=== PATIENT | female | born 1970 | race Hispanic/Latino ===

== ENCOUNTER 2017-12-03 02:22 | Emergency (ER) | payer BC, OTHER ==
[2017-12-03 02:53] LABS: APPEARANCE,URINE Clear (CLEAR); BILIRUBIN,URINE Negative (NEGATIVE); COLOR,URINE Yellow (YELLOW); GLUCOSE, URINE (UA) Negative (NEGATIVE); KETONES,URINE Negative (NEGATIVE); LEUKOCYTE ESTERASE ,URINE Small (NEGATIVE); NITRATE,URINE Negative (NEGATIVE); OCCULT BLOOD,URINE Large (NEGATIVE); PROTEIN,URINE Negative (NEGATIVE); UROBILINOGEN,URINE 0.2 mg/dL (0.2-1.0)
[2017-12-03 03:05] LABS: BACTERIA,URINE Few /HPF (None Seen); MUCUS,URINE Moderate LPF (None Seen); SQUAMOUS EPITHELIAL CELL,UR Few /LPF (0-2); YEAST,URINE BUDDING Few /HPF (None Seen)
[2017-12-03 03:24] LABS: BASOPHILS % (AUTO) 0.7 % (0.0-5.0); EOSINOPHILS % (AUTO) 0.5 % (0.0-8.0); HEMATOCRIT 38.2 % (36-48); LYMPHOCYTES % (AUTO) 15.7 % (21.0-51.0); MEAN CORPUSCULAR HEMOGLOBIN 31.4 pg (27.0-33.0); MEAN CORPUSCULAR HGB CONC 34.2 g/dL (32.0-36.0); MONOCYTES % (AUTO) 5.6 % (3.0-13.0); NEUTROPHILS % (AUTO) 77.5 % (40.0-77.0); PLATELET COUNT (AUTO) 270 K/uL (130-400); RED BLOOD CELL COUNT(AUTO) 4.15 MIL/uL (4.00-5.50); RED CELL DISTRIBUTION WIDTH 13.3 % (11.0-15.5); WHITE BLOOD COUNT (AUTO) 16.8 K/uL (4.8-10.8)
[2017-12-03 03:38] LABS: CREATININE 0.7 mg/dL (0.5-1.5); POTASSIUM 4.1 mmol/L (3.5-5.1)
[2017-12-03 03:42] LABS: ALBUMIN 3.9 g/dL (3.5-5.0); BILIRUBIN,TOTAL 0.3 mg/dL (0.2-1.0)
[2017-12-03] MEDS ORDERED: KETOROLAC TROMETHAMINE 30MG/ML ONE (04:50)
[2017-12-03] MEDS ORDERED: SODIUM CHLORIDE 0.9% 500ML 0 ML IV ONE (04:50)
[2017-12-03] MEDS ORDERED: SODIUM CHLORIDE 0.9% 1000ML 1,000 ML IV ONE (04:51)
[2017-12-03] MEDS ORDERED: ONDANSETRON HCL 4 MG/2 ML VIAL ONE (04:51)
[2017-12-03] MEDS ORDERED: MORPHINE SULFATE 4 MG/1ML SYG ONE (08:27)
== END 2017-12-03 09:51 | disposition home or self-care (01) ==
LOC: EDH 02:22
DX: R10.31 Right lower quadrant pain (principal); Z98.890 Other specified postprocedural states
CPT/HCPCS: 36415; 74176; 76856; 80053; 81001; 85025; 96361; 96374; 96375; 99285; J1885; J2270; J2405; J7030; J7040

== ENCOUNTER 2022-12-01 01:00 | Emergency (ER) | payer BC, OTHER ==
[~2022-12-01] VITALS: Ht 167.6 cm; Wt 86.6 kg
[2022-12-01] MEDS ORDERED: ONDANSETRON 4MG INJ ONE (01:21)
[2022-12-01] MEDS ORDERED: 0.9%NACL 1000ML 1,000 ML IV ONE (01:21)
[2022-12-01] MEDS ORDERED: KETOROLAC 30MG VIAL (30MG/ML) ONE (01:21)
[2022-12-01 01:41] LABS: BASOPHILS % (AUTO) 0.5 % (0.0-5.0); EOSINOPHILS % (AUTO) 2.3 % (0.0-8.0); HEMATOCRIT 40.9 % (36-48); LYMPHOCYTES % (AUTO) 42.1 % (21.0-51.0); MEAN CORPUSCULAR HEMOGLOBIN 30.6 pg (27.0-33.0); MEAN CORPUSCULAR VOLUME 90.1 fL (79-99); MONOCYTES % (AUTO) 7.2 % (3.0-13.0); NEUTROPHILS % (AUTO) 47.7 % (40.0-77.0); PLATELET COUNT (AUTO) 313 K/uL (130-400); RED BLOOD CELL COUNT(AUTO) 4.54 MIL/uL (4.00-5.50); RED CELL DISTRIBUTION WIDTH 11.8 % (11.0-15.5); WHITE BLOOD COUNT (AUTO) 11.6 K/uL (4.8-10.8)
[2022-12-01 01:43] LABS: APPEARANCE,URINE CLEAR (CLEAR); BILIRUBIN,URINE NEGATIVE (NEGATIVE); COLOR,URINE LIGHT-YELLOW (YELLOW); GLUCOSE, URINE (UA) NEGATIVE (NEGATIVE); KETONES,URINE NEGATIVE (NEGATIVE); LEUKOCYTE ESTERASE ,URINE 25 Leu/uL (NEGATIVE); NITRATE,URINE NEGATIVE (NEGATIVE); OCCULT BLOOD,URINE NEGATIVE (NEGATIVE); PROTEIN,URINE NEGATIVE (NEGATIVE); UROBILINOGEN,URINE 0.2 mg/dL (0.2-1.0)
[2022-12-01 01:51] LABS: BACTERIA,URINE RARE /HPF (None Seen); MUCUS,URINE RARE LPF (None Seen); RBC,URINE 0-1 /HPF (0-1); SQUAMOUS EPITHELIAL CELL,UR RARE /HPF (0-2)
[2022-12-01 01:58] LABS: ALBUMIN 4.1 g/dL (3.5-5.0); TOTAL PROTEIN, SERUM 7.8 g/dL (6.0-8.3)
[2022-12-01] MEDS ORDERED: MORPHINE 4 MG SYG ONE (02:03)
[2022-12-01] MEDS ORDERED: MORPHINE 5 MG/ML VIAL (5MG OR GREATER DOSE) ONE (03:03)
[2022-12-01 07:25] VITALS: BP 133/82
[2022-12-01] MEDS ORDERED: ACET-2079 PO (07:47)
[2022-12-01] MEDS ORDERED: DICL25TA9 PO (07:47)
[2022-12-01] MEDS ORDERED: CEPH500B PO (07:51)
[2022-12-01] MEDS ORDERED: CEFTRIAXONE 1G VIAL IVPB ONE (08:00)
== END 2022-12-01 08:04 | disposition home or self-care (01) ==
LOC: EDH 01:00
DX: N13.2 Hydronephrosis with renal and ureteral calculous obstruction (principal); Z87.442 Personal history of urinary calculi; Z90.710 Acquired absence of both cervix and uterus
CPT/HCPCS: 99284; 74176; 96374; 96375; 96361; 80053; 83690; 85025; 81001; 36415; J2270 ×2; J7030; J0696; J2405; J1885

== ENCOUNTER 2023-03-31 18:52 | Emergency (ER) | payer BC ==
[~2023-03-31] VITALS: Ht 165.1 cm; Wt 81.6 kg
[~2023-03-31 18:52] MED LIST: ACET-2079 PO; CEPH500B PO; DICL25TA9 PO
[2023-03-31 20:04] LABS: BASOPHILS % (AUTO) 0.7 % (0.0-5.0); EOSINOPHILS % (AUTO) 5.5 % (0.0-8.0); HEMATOCRIT 40.5 % (36-48); LYMPHOCYTES % (AUTO) 35.6 % (21.0-51.0); MEAN CORPUSCULAR HEMOGLOBIN 30.5 pg (27.0-33.0); MEAN CORPUSCULAR HGB CONC 33.3 g/dL (32.0-36.0); MEAN CORPUSCULAR VOLUME 91.6 fL (79-99); MONOCYTES % (AUTO) 7.1 % (3.0-13.0); NEUTROPHILS % (AUTO) 50.9 % (40.0-77.0); PLATELET COUNT (AUTO) 265 K/uL (130-400); RED BLOOD CELL COUNT(AUTO) 4.42 MIL/uL (4.00-5.50); RED CELL DISTRIBUTION WIDTH 12.1 % (11.0-15.5); WHITE BLOOD COUNT (AUTO) 8.8 K/uL (4.8-10.8)
[2023-03-31 20:11] LABS: APPEARANCE,URINE CLEAR (CLEAR); BILIRUBIN,URINE NEGATIVE (NEGATIVE); COLOR,URINE COLORLESS (YELLOW); GLUCOSE, URINE (UA) NEGATIVE (NEGATIVE); KETONES,URINE NEGATIVE (NEGATIVE); LEUKOCYTE ESTERASE ,URINE 75 Leu/uL (NEGATIVE); NITRATE,URINE NEGATIVE (NEGATIVE); OCCULT BLOOD,URINE NEGATIVE (NEGATIVE); PROTEIN,URINE NEGATIVE (NEGATIVE); UROBILINOGEN,URINE 0.2 mg/dL (0.2-1.0)
[2023-03-31 20:15] LABS: BACTERIA,URINE RARE /HPF (None Seen); RBC,URINE 0-1 /HPF (0-1); SQUAMOUS EPITHELIAL CELL,UR RARE /HPF (0-2)
[2023-03-31 20:18] LABS: POTASSIUM 3.7 mmol/L (3.5-5.1)
[2023-03-31 20:23] LABS: ALBUMIN 4.2 g/dL (3.5-5.0); TOTAL PROTEIN, SERUM 7.3 g/dL (6.0-8.3)
[2023-03-31] MEDS ORDERED: IBUP-1493 PO (20:48)
[2023-03-31] MEDS ORDERED: CEFU500T67 PO (20:48)
[2023-03-31 22:05] VITALS: BP 135/60
== END 2023-03-31 22:20 | disposition home or self-care (01) ==
LOC: EDH 18:52
DX: N39.0 Urinary tract infection, site not specified (principal); R29.91 Unspecified symptoms and signs involving the musculoskeletal system; F17.210 Nicotine dependence, cigarettes, uncomplicated; Z79.1 Long term (current) use of non-steroidal anti-inflammatories (NSAID)
CPT/HCPCS: 36415; 71045; 80053; 81001; 84484; 85025; 85378; 87088; 93005

== ENCOUNTER 2024-05-10 00:44 | Emergency (ER) | payer BC ==
[~2024-05-10] VITALS: Ht 165.1 cm; Wt 56.7 kg
[~2024-05-10 00:44] MED LIST changes: +CEFU500T67 PO; +IBUP-1493 PO
[2024-05-10 01:06] LABS: BASOPHILS # (AUTO) 0.03 K/uL (0.00-0.20); BASOPHILS % (AUTO) 0.3 % (0.0-5.0); EOSINOPHILS # (AUTO) 0.37 K/uL (0.00-0.70); EOSINOPHILS % (AUTO) 3.7 % (0.0-8.0); HEMATOCRIT 42.2 % (36-48); IMMATURE GRANULOCYTE ABSOLUTE 0.01 K/uL (0-1); LYMPHOCYTES # (AUTO) 4.2 K/uL (1.0-4.8); LYMPHOCYTES % (AUTO) 41.4 % (21.0-51.0); MEAN CORPUSCULAR HEMOGLOBIN 30.6 pg (27.0-33.0); MEAN CORPUSCULAR HGB CONC 33.9 g/dL (32.0-36.0); MEAN CORPUSCULAR VOLUME 90.2 fL (79-99); MONOCYTES # (AUTO) 0.6 K/uL (0.1-1.0); MONOCYTES % (AUTO) 6.1 % (3.0-13.0); NEUTROPHILS # (AUTO) 4.9 K/uL (1.8-7.7); NEUTROPHILS % (AUTO) 48.4 % (40.0-77.0); PLATELET COUNT (AUTO) 155 K/uL (130-400); RED BLOOD CELL COUNT(AUTO) 4.68 MIL/uL (4.00-5.50)
[2024-05-10 01:24] LABS: CREATININE 0.8 mg/dL (0.5-1.0); POTASSIUM 4.5 mmol/L (3.5-5.1)
[2024-05-10 01:29] LABS: ALBUMIN 4.4 g/dL (3.5-5.0); B-TYPE NATRIURETIC PEPTIDE 19 pg/mL (0-100); BILIRUBIN,TOTAL 0.4 mg/dL (0.2-1.0); TOTAL PROTEIN, SERUM 7.9 g/dL (6.0-8.3)
[2024-05-10] MEDS: ASPIRIN 325MG TAB PO ONE (01:53)
[2024-05-10] MEDS: PANTOPRAZOLE 40 MG/VIAL IVP ONE (01:54)
[2024-05-10] MEDS: NITROGLYCERIN 1GM OINT 1 INCH/1GM TD ONE (01:54)
[2024-05-10 02:14] LABS: APPEARANCE,URINE CLEAR (CLEAR); BILIRUBIN,URINE NEGATIVE (NEGATIVE); COLOR,URINE COLORLESS (YELLOW); GLUCOSE, URINE (UA) NEGATIVE (NEGATIVE); KETONES,URINE NEGATIVE (NEGATIVE); LEUKOCYTE ESTERASE ,URINE 75 Leu/uL (NEGATIVE); NITRATE,URINE NEGATIVE (NEGATIVE); OCCULT BLOOD,URINE NEGATIVE (NEGATIVE); PH,URINE 6.5 (5.0-8.0); PROTEIN,URINE NEGATIVE (NEGATIVE); UROBILINOGEN,URINE 0.2 mg/dL (0.2-1.0)
[2024-05-10 02:15] LABS: ADD UA MICROSCOPIC YES
[2024-05-10 02:16] LABS: RBC,URINE 0-1 /HPF (0-1); SQUAMOUS EPITHELIAL CELL,UR RARE /HPF (0-2); WBC,URINE 0-1 /HPF (0-1)
[2024-05-10 02:17] LABS: BACTERIA,URINE Rare /HPF (None Seen)
[2024-05-10] MEDS ORDERED: PANT20TA18 PO (02:57)
[2024-05-10] MEDS ORDERED: NITR100C4 PO (02:57)
[2024-05-10] MEDS: KETOROLAC 15MG/ML VIAL (15MG/ML) IV ONE (02:58)
[2024-05-10 04:09] VITALS: BP 109/55; PULSE 78; RESP 16; O2SAT 98
== END 2024-05-10 04:17 | disposition home or self-care (01) ==
LOC: EDH 00:44
DX: K29.70 Gastritis, unspecified, without bleeding (principal); N39.0 Urinary tract infection, site not specified; R07.89 Other chest pain; Z79.899 Other long term (current) drug therapy; Z90.710 Acquired absence of both cervix and uterus; Z98.890 Other specified postprocedural states
CPT/HCPCS: 99284; 82550; 84484 ×3; 80053; 83880; 83690; 85025; 87086; 81001; 36415; 71045; 96374; 96375; 93005; J2470; J1885

== ENCOUNTER 2024-06-24 16:06 | Emergency (ER) | payer BC ==
[~2024-06-24] VITALS: Ht 162.6 cm; Wt 63.0 kg
[~2024-06-24 16:06] MED LIST changes: +NITR100C4 PO; +PANT20TA18 PO
[2024-06-24 16:43] LABS: BASOPHILS # (AUTO) 0.07 K/uL (0.00-0.20); BASOPHILS % (AUTO) 0.8 % (0.0-5.0); EOSINOPHILS % (AUTO) 4.7 % (0.0-8.0); HEMATOCRIT 42.1 % (36-48); IMMATURE GRANULOCYTE ABSOLUTE 0.01 K/uL (0-1); LYMPHOCYTES # (AUTO) 3.4 K/uL (1.0-4.8); MEAN CORPUSCULAR HEMOGLOBIN 30.9 pg (27.0-33.0); MEAN CORPUSCULAR HGB CONC 33.7 g/dL (32.0-36.0); MEAN CORPUSCULAR VOLUME 91.5 fL (79-99); MONOCYTES # (AUTO) 0.6 K/uL (0.1-1.0); MONOCYTES % (AUTO) 7.3 % (3.0-13.0); NEUTROPHILS # (AUTO) 4.1 K/uL (1.8-7.7); NEUTROPHILS % (AUTO) 47.1 % (40.0-77.0); PLATELET COUNT (AUTO) 281 K/uL (130-400); RED CELL DISTRIBUTION WIDTH 11.9 % (11.0-15.5); WHITE BLOOD COUNT (AUTO) 8.6 K/uL (4.8-10.8)
[2024-06-24 16:46] LABS: APPEARANCE,URINE CLEAR (CLEAR); BILIRUBIN,URINE NEGATIVE (NEGATIVE); COLOR,URINE LIGHT-YELLOW (YELLOW); GLUCOSE, URINE (UA) NEGATIVE (NEGATIVE); KETONES,URINE NEGATIVE (NEGATIVE); LEUKOCYTE ESTERASE ,URINE 250 Leu/uL (NEGATIVE); NITRATE,URINE NEGATIVE (NEGATIVE); OCCULT BLOOD,URINE NEGATIVE (NEGATIVE); PH,URINE 5.5 (5.0-8.0); PROTEIN,URINE NEGATIVE (NEGATIVE); UROBILINOGEN,URINE 0.2 mg/dL (0.2-1.0)
[2024-06-24 16:57] LABS: ADD UA MICROSCOPIC YES
[2024-06-24 17:01] LABS: MUCUS,URINE RARE LPF (None Seen); SQUAMOUS EPITHELIAL CELL,UR FEW /HPF (0-2)
[2024-06-24 17:04] LABS: CREATININE 0.8 mg/dL (0.5-1.0)
[2024-06-24] MEDS: cefTRIAXone 1G VIAL IVPB ONE (17:39)
[2024-06-24] MEDS ORDERED: ACET-66 PO (18:16)
[2024-06-24] MEDS ORDERED: CEPH500B PO (18:16)
[2024-06-24 18:39] VITALS: BP 146/88; PULSE 61; RESP 14; TEMP 98.6; O2SAT 99
== END 2024-06-24 18:42 | disposition home or self-care (01) ==
LOC: EDH 16:06
DX: N39.0 Urinary tract infection, site not specified (principal); K21.9 Gastro-esophageal reflux disease without esophagitis; Z79.1 Long term (current) use of non-steroidal anti-inflammatories (NSAID); Z79.899 Other long term (current) drug therapy; Z90.710 Acquired absence of both cervix and uterus
CPT/HCPCS: 99284; 74176; 96365; 80048; 85025; 87086; 81001; 36415; J0696

== ENCOUNTER 2025-09-01 11:06 | Emergency (ER) | payer BC ==
[~2025-09-01] VITALS: Ht 165.1 cm; Wt 89.8 kg
[~2025-09-01 11:06] MED LIST changes: +ACET-66 PO
[2025-09-01 11:32] LABS: APPEARANCE,URINE CLEAR (CLEAR); GLUCOSE, URINE (UA) NEGATIVE (NEGATIVE); LEUKOCYTE ESTERASE ,URINE 75 Leu/uL (NEGATIVE); NITRATE,URINE NEGATIVE (NEGATIVE); OCCULT BLOOD,URINE NEGATIVE (NEGATIVE)
[2025-09-01 11:40] LABS: ADD UA MICROSCOPIC YES
[2025-09-01 11:40] LABS: IMMATURE GRANULOCYTE ABSOLUTE 0.03 K/uL (0-1); NUCLEATED RED BLOOD CELLS 0.0 % (0.0-0.19); PLATELET COUNT (AUTO) 263 K/uL (130-400); RED BLOOD CELL COUNT(AUTO) 4.42 MIL/uL (4.00-5.50); RED CELL DISTRIBUTION WIDTH 12.1 % (11.0-15.5); WHITE BLOOD COUNT (AUTO) 8.8 K/uL (4.8-10.8)
[2025-09-01 11:46] LABS: CREATININE 0.9 mg/dL (0.5-1.0); GLOMERULAR FILTR. RATE CALC 75.0 mL/min (>90); GLUCOSE,RANDOM 127.0 mg/dL (70-105); SODIUM SERUM 141.0 mmol/L (136-145); UREA NITROGEN, BLOOD 18.0 mg/dL (7-18)
[2025-09-01 11:46] LABS: SQUAMOUS EPITHELIAL CELL,UR RARE /HPF (0-2)
[2025-09-01] MEDS: LIDOCAINE 4% ADH..PATCH TP ONE (11:53)
[2025-09-01] MEDS: 0.9%NACL 1000ML 1,000 ML IV STA (11:53)
[2025-09-01] MEDS ORDERED: METH100054 PO (13:00)
[2025-09-01] MEDS ORDERED: LIDO1ADH82 TP (13:00)
[2025-09-01] MEDS ORDERED: KETO10TA2 PO (13:00)
--- NOTE | 2025-09-01 13:01 | ERN ---
ED Note History of Present Illness Stated Complaint: BACK PAIN Chief Complaint: Back Pain-No Injury Time Seen by MD: 11:09 Time Seen by Midlevel: 11:11 Dictation: 55-year-old female coming in with complaints of left lower back pain radiating to her left leg, this is has been going on since last Sunday. Patient is also complaining of dysuria. Any fever, nausea vomiting or diarrhea. Denies any medical history. Allergies: Coded Allergies: No Known Allergies (Unverified Allergy, Unknown, 12/01/22) Home Meds Active Scripts Acetaminophen (Tylenol) 500 Mg Tab, 500 MG PO Q6HPRN, #30 TAB Prov:GAVINO VALENTE MD 06/24/24 Cephalexin Monohydrate (Keflex) 500 Mg Cap, 500 MG PO Q6HPRN, #28 CAP Prov:GAVINO VALENTE MD 06/24/24 Pantoprazole Sodium (Pantoprazole Sodium) 20 Mg Tablet.dr, 20 MG PO DAILY for 30 Days, #30 TAB Prov:LAINE WEINSTEIN MD 05/10/24 Nitrofurantoin Monohyd/M-Cryst (Macrobid 100 mg Capsule) 100 Mg Capsule, 100 MG PO BID for 5 Days, #10 CAP Prov:LAINE WEINSTEIN MD 05/10/24 Cefuroxime Axetil (Cefuroxime) 500 Mg Tablet, 500 MG PO BID, #20 TAB Prov:NEGRA HARRIS MD 03/31/23 Ibuprofen (Motrin/Advil) 800 Mg Tab, 800 MG PO TID, #30 TAB Prov:NEGRA HARRIS MD 03/31/23 Cephalexin Monohydrate (Keflex) 500 Mg Cap, 500 MG PO QID for 5 Days, #20 CAP Prov:AROLDO MENCHACA MD 12/01/22 Acetaminophen with Codeine (Acetaminophen-Cod #3 Tablet) 1 Each Tablet, 1 EACH PO QIDP for 3 Days, #12 TAB Prov:AROLDO MENCHACA MD 12/01/22 Diclofenac Sodium (Diclofenac Sodium) 25 Mg Tablet.dr, 25 MG PO QID for 10 Days, #40 TAB Prov:AROLDO MENCHACA MD 12/01/22 Past Medical History Past Medical History: GERD, Kidney Stone Surgical History: Hysterectomy Surgical History Other: ECTOPIC Family History: Negative Social History: ETOH, Lives with family History: Not Applicable Review of System Dictation Constitutional: Negative for fever,chills, and weight loss Eyes: Negative for injury, pain,redness, and discharge ENT: Negative for injury,pain or swelling Cardiovascular: Negative for chest pain, palpitations, and edema Respiratory: Negative for shortness of breath, cough, and wheezing, Abdomen/GI: Negative for abdominal pain, nausea, vomiting, diarrhea, and constipation Back: Negative for injury and pain : Negative for injury, bleeding and discharge MS/Extremity: Negative for injury and deformity left lower back pain radiating to the left leg Skin: Negative for rash, and discoloration Neuro: Negative for headache, weakness, numbness, tingling, and seizure Psych: Negative for suicide ideation, homicidal ideation, and hallucinations Review of Systems: was completed Initial Vital Sign VS Vital Signs Date Time Temp Pulse Resp B/P (MAP) Pulse Ox O2 Delivery O2 Flow Rate FiO2 09/01/25 11:07 97.9 71 18 159/89 99 Room Air 0 Physical Exam Dictation General: awake, alert, NAD Head/Face: Normocephalic, atraumatic Eyes: PERRL, EOMI, vision at baseline ENT: oral cavity clear, TMs clear, no signs of infection Neck: Trachea midline, supple, no nuchal rigidity Cardiovascular: RRR, normal S1/S2, No MRGs, no JVD Respiratory: CTAB, no respiratory distress, No rales or wheezes Abdomen: Soft, non-tender, non-distended, normal bowel sounds, no guarding or rebound., no CVA tenderness Skin: Warm, dry, normal turgor, no rash MS/Extremity: Pulses equal, no cyanosis, neurovascular intact, FROM Neuro: COAx4, GCS 15, strength 5/5, CN 2-12 intact, normal cerebellar exam, normal gait, Psych: Normal behavior, mood, and affect normal Results (Laboratory/Radiology) Laboratory/Radiology Laboratory Tests Test 09/01/25 11:10 09/01/25 11:34 Urine Color YELLOW (YELLOW) Urine Appearance CLEAR (CLEAR) Urine pH 6.0 (5.0-8.0) Urine Specific [place] 1.031 (1.001-1.031) Urine Protein NEGATIVE mg/dL (NEGATIVE) Urine Glucose (UA) NEGATIVE mg/dL (NEGATIVE) Urine Ketones NEGATIVE mg/dL (NEGATIVE) Urine Occult Blood NEGATIVE (NEGATIVE) Urine Nitrate NEGATIVE (NEGATIVE) Urine Bilirubin NEGATIVE mg/dL (NEGATIVE) Urine Urobilinogen 0.2 mg/dL (0.2-1.0) Urine Leukocyte Esterase 75 Osiris/uL (NEGATIVE) H Urine RBC 0-1 /HPF (0-1) Urine WBC 0-1 /HPF (0-1) Urine Squamous Epithelial Cells RARE /HPF (0-2) Urine Bacteria None /HPF (None Seen) White Blood Count 8.8 K/uL (4.8-10.8) Red Blood Count 4.42 MIL/uL (4.00-5.50) Hemoglobin 13.5 g/dL (12.0-16.0) Hematocrit 39.6 % (36-48) Mean Corpuscular Volume 89.6 fL (79-99) Mean Corpuscular Hemoglobin 30.5 pg (27.0-33.0) Mean Corpuscular Hemoglobin Concent 34.1 g/dL (32.0-36.0) Red Cell Distribution Width 12.1 % (11.0-15.5) Platelet Count 263 K/uL (130-400) Mean Platelet Volume 11.2 fL (7.5-10.5) H Immature Granulocyte % (Auto) 0.3 % (0-1) Neutrophils (%) (Auto) 60.8 % (40.0-77.0) Lymphocytes (%) (Auto) 29.0 % (21.0-51.0) Monocytes (%) (Auto) 7.0 % (3.0-13.0) Eosinophils (%) (Auto) 2.3 % (0.0-8.0) Basophils (%) (Auto) 0.6 % (0.0-5.0) Neutrophils # (Auto) 5.3 K/uL (1.8-7.7) Lymphocytes # (Auto) 2.5 K/uL (1.0-4.8) Monocytes # (Auto) 0.6 K/uL (0.1-1.0) Eosinophils # (Auto) 0.20 K/uL (0.00-0.70) Basophils # (Auto) 0.05 K/uL (0.00-0.20) Absolute Immature Granulocyte (auto 0.03 K/uL (0-1) Nucleated Red Blood Cells 0.0 % (0.0-0.19) Sodium Level 141 mmol/L (136-145) Potassium Level 4.0 mmol/L (3.5-5.1) Chloride Level 104 mmol/L (101-111) Carbon Dioxide Level 28 mmol/L (21-32) Blood Urea Nitrogen 18 mg/dL (7-18) Creatinine 0.9 mg/dL (0.5-1.0) Glomerular Filtration Rate Calc 75 mL/min (>90) Random Glucose 127 mg/dL (70-105) H Total Calcium 9.0 mg/dL (8.5-10.1) Labs Reviewed?: Yes ED Course ED Course Orders Procedure Category Date Status Time Cbc With Differential LAB 09/01/25 Complete 11:19 Basic Metabolic Panel LAB 09/01/25 Complete 11:19 Urinalysis Profile LAB 09/01/25 Complete 11:19 0.9%Nacl 1000ml (Ns PHA 09/01/25 In Process 1000ml) 11:19 Ondansetron 4mg Inj PHA 09/01/25 Complete (Zofran 4mg Inj) 11:30 Ketorolac PHA 09/01/25 Complete Tromethamine 15mg/Ml 11:19 Methocarbamol PHA 09/01/25 Complete (Methocarbamol) 11:19 Lidocaine (Lidocaine PHA 09/01/25 Complete Patch 4%) 11:30 Culture Urine REID 09/01/25 In Process 11:41 Dexamethasone 4mg/Ml PHA 09/01/25 Logged 1ml Vial (Dexametha 12:54 Current Medications Medications (Trade) Dose Ordered Sig/Khoa Route PRN Reason Start Time Stop Time Status Last Admin Dose Admin Ketorolac Tromethamine (toRADol) 15 mg ONCE STAT IV 09/01/25 11:19 09/01/25 11:27 DC 09/01/25 11:56 Lidocaine (Lidocaine Patch 4%) 1 each ONCE ONCE TP 09/01/25 11:30 09/01/25 11:31 DC 09/01/25 11:53 Methocarbamol (methoCARBamol) 1,000 mg ONCE STAT PO 09/01/25 11:19 09/01/25 11:25 DC 09/01/25 11:54 Ondansetron HCl (zoFRAN 4MG INJ) 4 mg ONCE ONCE IVP 09/01/25 11:30 09/01/25 11:31 DC 09/01/25 11:53 Sodium Chloride 1,000 ml @ 100 mls/hr Q10H STAT IV 09/01/25 11:19 09/01/25 21:18 09/01/25 11:53 Vital Signs Date Time Temp Pulse Resp B/P (MAP) Pulse Ox O2 Delivery O2 Flow Rate FiO2 09/01/25 11:07 97.9 71 18 159/89 99 Room Air 0 Medical Decision Making MDM MDM:55-year-old female coming in with complaints of left lower back pain radiating to her left leg, this is has been going on since last Sunday. Patient is also complaining of dysuria. Any fever, nausea vomiting or diarrhea. Denies any medical history. Blood work is unremarkable. UA shows no evidence of urinary tract infection or hematuria. After fluids, pain medication patient states feels much better. We will discharge patient with the pain management to follow up outpatient with the PCP. Patient verbalized understanding, answered all questions. Differential diagnosis: Sciatica, UTI, pyelo Rationale: Tests considered and ordered secondary to shared decision making in clude: Previous outside records reviewed: Old ER visits. Risk of complication and/or morbidity or mortality of patient management: None Medications-Per medication reconciliation Need for hospitalization: Patient does not meet criteria for hospitalization. Need for emergency major/minor surgery: No There are no social concerns with this patient. Prescription drug management Prescriptions will include symptomatic care Patient's prior external medical records from other ER visits were reviewed by me as indicated. Prior testing and results from previous visits were reviewed. Prior tests were taken into account with medical decision making and resource utilization, independent historian/historians were used to obtain complete medical history. I independently interpreted the test that were performed, results were reviewed by me and considered findings on radiology if ordered. Medical management and examination interpretation discussions were had by me with other qualified healthcare professionals as indicated for the patient's care. DX & DISP Disposition: Discharge Departure Impression: Primary Impression: Sciatic nerve pain Condition: Stable Scripts Methocarbamol (Methocarbamol) 1,000 Mg Tablet 1000 MG PO TIDP PRN for MUSCLE SPASMS for 5 Days, #15 TAB Prov: MAURI FITZGERALD [employer] 09/01/25 Lidocaine (Lidocaine) 4 % Adh..patch 1 PATCH TP DAILY for 10 Days, #10 PATCH 0 Refills Prov: MAURI FITZGERALD [employer] 09/01/25 Ketorolac Tromethamine (Ketorolac Tromethamine) 10 Mg Tablet 1 TAB PO Q6HPRN PRN for pain for 5 Days, #20 TAB 0 Refills Prov: MAURI FITZGERALD CNP 09/01/25 Additional Instructions: Medications as prescribed. Follow up with your primary care provider for further evaluation. Referrals: DANA PHILLIPS DO (PCP) Time of Disposition: 13:01 I have reviewed the case, and I agree with, Diagnosis and Plan MAURI FITZGERALD CNP Sep 01, 2025 13:01
[2025-09-01 13:25] VITALS: BP 129/82; PULSE 76; RESP 18; TEMP 97.9; O2SAT 98
== END 2025-09-01 13:55 | disposition home or self-care (01) ==
LOC: EDH 11:06
DX: M54.32 Sciatica, left side (principal); Z79.1 Long term (current) use of non-steroidal anti-inflammatories (NSAID); Z79.899 Other long term (current) drug therapy; Z87.442 Personal history of urinary calculi; Z90.710 Acquired absence of both cervix and uterus
CPT/HCPCS: 99284; 96374; 96361; 96375; 80048; 85025; 87086; 81001; 36415; 96372; J1100; J1885; J7030; J2405

== ENCOUNTER 2025-09-02 12:29 | Emergency (ER) | payer BC ==
[~2025-09-02] VITALS: Ht 165.1 cm; Wt 88.5 kg
[~2025-09-02 12:29] MED LIST changes: +KETO10TA2 PO; +LIDO1ADH82 TP; +METH100054 PO
[2025-09-02 12:33] VITALS: BP 135/90; PULSE 60; RESP 18; TEMP 97.7
--- NOTE | 2025-09-02 12:46 | ERN ---
ED Note History of Present Illness Stated Complaint: BACK PAIN Chief Complaint: Back Injury Time Seen by : 12:35 Dictation: IN HIS A 55-YEAR-OLD FEMALE COMING IN TODAY WITH COMPLAINTS OF NON TRAUMA LEFT LUMBAR PAIN THAT RADIATES DOWN POSTERIOR LEFT LEG ONSET WAS LAST SUNDAY. SHE STATES SHE WAS AT WORK SITTING WHEN SHE WENT TO STAND UP AND FELT THE PAIN IN HER BACK WITH THE PAIN RUNNING DOWN HER LEFT LEG. NO CHANGE IN BOWEL OR BLADDER FUNCTIONS. SHE STATES SHE WOULD NOT GO SEE PRIMARY CARE DOCTOR BECAUSE IT IS HARD TO GET AN APPOINTMENT. SHE STATES SHE WENT TO [facility] WHEN IT OCCURRED AND HAD A CT DONE AND WAS TOLD EVERYTHING WAS NORMAL ON-CALL. SEE HER DOCTOR. SHE WAS SEEN AT [facility] RO[facility] LAST NIGHT FOR THE SAME COMPLAINT WITH LABS DONE AND AN URINALYSIS PERFORMED TO RULE OUT GENITOURINARY ETIOLOGY. SHE WAS DISCHARGED HOME WITH DIAGNOSIS OF SCIATICA NERVE PAIN SHE SAID THE MEDICATIONS ARE NOT WORKING AND CAME BACK TO THE EMERGENCY ROOM. SHE WAS STRONGLY ADVISED TO SEE HER DOCTOR BECAUSE SHE WILL NEED AN MRI DUE TO SCIATICA AND I CAN ASSIST HER WITH HER PAIN. Allergies: Coded Allergies: No Known Allergies (Unverified Allergy, Unknown, 12/01/22) Home Meds Active Scripts Methocarbamol (Methocarbamol) 1,000 Mg Tablet, 1000 MG PO TIDP PRN for MUSCLE SPASMS for 5 Days, #15 TAB Prov:MAURI FITZGERALD [facility] 09/01/25 Lidocaine (Lidocaine) 4 % Adh..patch, 1 PATCH TP DAILY for 10 Days, #10 PATCH 0 Refills Prov:MAURI FITZGERALD [facility] 09/01/25 Ketorolac Tromethamine (Ketorolac Tromethamine) 10 Mg Tablet, 1 TAB PO Q6HPRN PRN for pain for 5 Days, #20 TAB 0 Refills Prov:MAURI FITZGERALD [facility] 09/01/25 Acetaminophen (Tylenol) 500 Mg Tab, 500 MG PO Q6HPRN, #30 TAB Prov:GAVINO VALENTE MD 06/24/24 Cephalexin Monohydrate (Keflex) 500 Mg Cap, 500 MG PO Q6HPRN, #28 CAP Prov:GAVINO VALENTE MD 06/24/24 Pantoprazole Sodium (Pantoprazole Sodium) 20 Mg Tablet.dr, 20 MG PO DAILY for 30 Days, #30 TAB Prov:LAINE WEINSTEIN MD 05/10/24 Nitrofurantoin Monohyd/M-Cryst (Macrobid 100 mg Capsule) 100 Mg Capsule, 100 MG PO BID for 5 Days, #10 CAP Prov:LAINE WEINSTEIN MD 05/10/24 Cefuroxime Axetil (Cefuroxime) 500 Mg Tablet, 500 MG PO BID, #20 TAB Prov:NEGRA HARRIS MD 03/31/23 Ibuprofen (Motrin/Advil) 800 Mg Tab, 800 MG PO TID, #30 TAB Prov:NEGRA HARRIS MD 03/31/23 Cephalexin Monohydrate (Keflex) 500 Mg Cap, 500 MG PO QID for 5 Days, #20 CAP Prov:AROLDO MENCHACA MD 12/01/22 Acetaminophen with Codeine (Acetaminophen-Cod #3 Tablet) 1 Each Tablet, 1 EACH PO QIDP for 3 Days, #12 TAB Prov:AROLDO MENCHACA MD 12/01/22 Diclofenac Sodium (Diclofenac Sodium) 25 Mg Tablet.dr, 25 MG PO QID for 10 Days, #40 TAB Prov:AROLDO MENCHACA MD 12/01/22 Past Medical History Past Medical History: No Pertinent History Surgical History: Hysterectomy Surgical History Other: D&C Family History: Negative Social History: ETOH, Lives with family History: Not Applicable RN Note Reviewed/Agreed w/PFSH: Yes Review of System Dictation CONSTITUTIONAL: NEGATIVE EXCEPT FOR HPI HEAD/FACE: NEGATIVE EXCEPT FOR HPI EENT: NEGATIVE EXCEPT FOR HPI RESPIRATORY: NEGATIVE EXCEPT FOR HPI GASTROINTESTINAL/ABDOMINAL: NEGATIVE EXCEPT FOR HPI GENITOURINARY: NEGATIVE EXCEPT FOR HPI MUSCULOSKELETAL: NEGATIVE EXCEPT FOR HPI LEFT LUMBAR PAIN WITH SCIATICA INTEGUMENTARY: NEGATIVE EXCEPT FOR HPI NEUROLOGICAL/PSYCH: NEGATIVE EXCEPT FOR HPI HEMATOLOGIC/LYMPHATIC: NEGATIVE EXCEPT FOR HPI ALL SYSTEMS NEGATIVE, EXCEPT NOTED ABOVE. 13 POINT REVIEW OF SYSTEMS ASSESSED AND ALL NEGATIVE EXCEPT FOR ABOVE. Initial Vital Sign VS Vital Signs Date Time Temp Pulse Resp B/P (MAP) Pulse Ox O2 Delivery O2 Flow Rate FiO2 09/02/25 12:33 97.7 60 18 135/90 99 Room Air 0 Physical Exam Dictation VITAL SIGNS REVIEWED GENERAL APPEARANCE: ALERT, ORIENTED X 3, MODERATE ACUTE DISTRESS, WELL DEVELOPED, NOURISHED. HEAD AND FACE: NON-TRAUMATIC. EYES: PERRL, PINK CONJUNCTIVAS, EYELID NO TRAUMA, ANTERIOR CHAMBER WITH ARCUS SENILIS. EARS: PINNAS INTACT AND NO SIGNS OF TRAUMA OR ERYTHEMA EAR CANALS CLEAR AND NO DISCHARGE TM NO ERYTHEMA NOSE: NO DISCHARGE, NO BLEEDING. OROPHARYNX: MOUTH NORMAL, TONGUE PINK, PHARYNX CLEAR,NO ERYTHEMA, TONSILS NO EXUDATES, NO ABSCESSES NOTED, MUCOUS MEMBRANE MOIST NECK: SUPPLE, NON-TENDER, NO THYROMEGALY, NO MASSES, NO JVD, NO BRUITS BREAST:DEFERRED CHEST:NO TENDERNESS, NO CREPITUS, NO PARADOXICAL MOVEMENT, NO RETRACTIONS LUNGS:CLEAR, WELL-VENTILATED, SYMMETRIC, NO RALES, NO WHEEZING, NO RHONCHI, NO STRIDOR, GOOD BREATH SOUNDS BILATERALLY HEART: REGULAR RATE, REGULAR RHYTHM, NO MURMUR, NO GALLOPS VASCULAR: NO PERIPHERAL EDEMA, ABDOMEN: SOFT, POSITIVE BOWEL SOUNDS, NONDISTENDED, NO GUARDING, NONTENDER, NO REBOUND, NO MASSES NO HEPATOMEGALY, NO SPLENOMEGALY, NO JAY'S SIGN, NO HERNIAS. RECTAL: DEFERRED GENITAL: DEFERRED NEUROLOGICAL: NORMAL SPEECH, MOTOR FUNCTION INTACT, SENSORY FUNCTION INTACT MUSCULOSKELETAL: NECK NONTENDER, FULL RANGE OF MOTION, DIFFUSE LEFT LATERAL LUMBAR TENDERNESS WITH POSITIVE STRAIGHT LEG RAISE TO 10. SADDLE PARESTHESIA EXTREMITIES: NONTENDER, FULL RANGE OF MOTION SKIN: COLOR PINK, DRY, NO TURGOR, NO RASH, NO LACERATIONS, NO ABRASIONS, NO CONTUSIONS. LYMPHATIC: DEFERRED Results (Laboratory/Radiology) Labs Reviewed?: Yes ED Course ED Course Orders Procedure Category Date Status Time Lumbar Spine 2-3vws RAD 09/02/25 Logged 12:42 Cyclobenzaprine Hcl PHA 09/02/25 Complete (Cyclobenzaprine Hcl 13:00 Dexamethasone 4mg/Ml PHA 09/02/25 Complete 1ml Vial (Dexametha 13:00 Ketorolac 60mg/2ml PHA 09/02/25 Complete (Toradol 60mg/2ml) 13:00 Acetaminophen With PHA 09/02/25 Complete Codeine (Tylenol-Code 13:00 Current Medications Medications (Trade) Dose Ordered Sig/Khoa Route PRN Reason Start Time Stop Time Status Last Admin Dose Admin Acetaminophen/ Codeine Phosphate (TYLenol-coDEINE TAB) 2 tab ONCE ONCE PO 09/02/25 13:00 09/02/25 13:01 DC Cyclobenzaprine HCl (Cyclobenzaprine HCl) 10 mg ONCE ONCE PO 09/02/25 13:00 09/02/25 13:01 DC Dexamethasone Sodium Phosphate (dexaMETHasone 4MG/ML 1ML VIAL) 8 mg ONCE ONCE IM 09/02/25 13:00 09/02/25 13:01 DC Ketorolac Tromethamine (toRADol 60MG/ 2ML) 60 mg ONCE ONCE IM 09/02/25 13:00 09/02/25 13:01 DC Vital Signs Date Time Temp Pulse Resp B/P (MAP) Pulse Ox O2 Delivery O2 Flow Rate FiO2 09/02/25 12:33 97.7 60 18 135/90 99 Room Air 0 Medical Decision Making MDM PATIENT COMPLAIN TO GINA ED DIRECTOR THAT SHE WAS NOT HAPPY WITH THE CARE THAT HAS BEEN PROVIDED BY ME. SHE REFUSED TO WAIT FOR THE MEDICATIONS AND THE LUMBAR SPINE FILM. SHE SAID SHE IS CONCERNED SHE WOULD NOT GET INTO SEE HER PRIMARY CARE DOCTOR UNTIL SUNDAY IN HIS ON THE PHONE CURRENTLY WITH HER INSURANCE PROVIDER TO CHECK ON MRI FOR HER BACK. PATIENT LEFT WITHOUT TREATMENT OR X-RAY, SHE REFUSED TO SIGN AMA FORM DX & DISP Disposition: AMA Departure Impression: Primary Impression: Back pain of lumbosacral region with sciatica Condition: Stable Referrals: DANA PHILLIPS DO (PCP) Time of Disposition: 13:15 I have reviewed the case, and I agree with, Diagnosis and Plan KWESI CLEMENS [employer] PROGRAMS ANALYST Sep 02, 2025 12:46
[2025-09-02] MEDS ORDERED: CYCLOBENZAPRINE HCL 10 MG TABLET PO ONE (13:00)
--- NOTE | 2025-09-02 13:13 | NUR ---
PATIENT IS LEAVING WITHOUT TREATMENT OR IMAGING AND AGAINST MEDICAL ADVICE. PER ER DIRECTOR, PATIENT HAS BEEN EDUCATED ON RISK OF LEAVING WITHOUT TREATMENT AND AGAINST MEDICAL ADVICE. PATIENT REFUSES TO SIGN ANY PAPERWORK BEFORE LEAVING. PROVIDER KWESI HORTON MADE AWARE. CHARGE NURSE MADE AWARE. SECURITY MADE AWARE. AMA FORM DOCUMENTED BY ED RN AND PLACED IN PATIENT CHART.
== END 2025-09-02 13:20 | disposition left against medical advice (07) ==
LOC: EDH 12:29
DX: M54.42 Lumbago with sciatica, left side (principal); Z79.1 Long term (current) use of non-steroidal anti-inflammatories (NSAID); Z79.899 Other long term (current) drug therapy; Z90.710 Acquired absence of both cervix and uterus
CPT/HCPCS: 99282